=== PATIENT | male | born 1950 | race Caucasian/White ===

== ENCOUNTER → 2017-10-28 | Outpatient (CLI) | payer MEDICARE, BC ==
[~2017-10-28] MED LIST: ASPI325 PO; ASPI81EC; ERGO400; Glucophage1000 MG PO; HYDCHL25; LOSA50 PO; METO100ER; MONT10T PO; Multiple Vitam1 EAC1 PO; OMEP20ER; TELM80; TERA5; TOCO400
== END | disposition home or self-care (01) ==
LOC: LAB SHORT 10:53 → PLD 10:53
DX: C44.622 Squamous cell carcinoma of skin of right upper limb, including shoulder (principal); L82.1 Other seborrheic keratosis; L57.8 Other skin changes due to chronic exposure to nonionizing radiation
CPT/HCPCS: 88305

== ENCOUNTER → 2019-08-03 | Outpatient (CLI) | payer MEDICARE, BC | END | disposition home or self-care (01) | LOC: LAB SHORT 11:28 → PLD 11:28 | DX: L57.0 Actinic keratosis (principal) | CPT/HCPCS: 88305 ==

== ENCOUNTER 2023-06-10 11:03 | Day surgery (SDC) | payer MEDICARE ==
[~2023-06-10] VITALS: Ht 182.9 cm; Wt 119.4 kg
[~2023-06-10 11:03] MED LIST changes: +FURO40 PO; +METO25ER PO; +REPATHA SU140 MG/1 M; +SERT50 PO; +XARELTO20 MG PO
[2023-06-10] MEDS ORDERED: CeFAZolin Sodium 2,000 MG VIAL ONE (11:30)
[2023-06-10] MEDS ORDERED: NS 50 ML IV ONE (11:31)
[2023-06-10] MEDS ORDERED: SPIR25 PO (11:44)
[2023-06-10] MEDS ORDERED: ATOR40TA PO (11:45)
[2023-06-10] MEDS ORDERED: AMLO10 PO (11:46)
[2023-06-10] MEDS ORDERED: Lactated Ringer's 1,000 ML IV ONE (12:01)
[2023-06-10] MEDS ORDERED: Ropivacaine 0.5% HCl/Pf 5 MG/ML 20ML VIAL ONE (12:10)
[2023-06-10] MEDS ORDERED: Lidocaine HCl/Pf 1% 5 ML VIAL ONE (12:10)
[2023-06-10] MEDS ORDERED: FentaNYL Citrate 50 MCG/ML 2 ML Injection ONE (12:44)
[2023-06-10] MEDS ORDERED: propofoL 40 ML IV ONE (12:44)
[2023-06-10] MEDS ORDERED: Ibuprofen 600 MG Tab ONE (14:02)
[2023-06-10 14:08] VITALS: BP 133/59
== END 2023-06-10 14:27 | disposition home or self-care (01) ==
LOC: ORSCSDS 11:03
PROVIDERS: Podiatrist
PROC: 0SNQ0ZZ Release Left Toe Phalangeal Joint, Open Approach (ICD-10-PCS; principal; 2023-06-10 12:30)
PROC: 0L8W0ZZ Division of Left Foot Tendon, Open Approach (ICD-10-PCS; principal; 2023-06-10 12:30)
DX: M20.42 Other hammer toe(s) (acquired), left foot (principal); I12.9 Hypertensive chronic kidney disease with stage 1 through stage 4 chronic kidney disease, or unspecified chronic kidney disease; E11.22 Type 2 diabetes mellitus with diabetic chronic kidney disease; E11.65 Type 2 diabetes mellitus with hyperglycemia; N18.9 Chronic kidney disease, unspecified; E11.40 Type 2 diabetes mellitus with diabetic neuropathy, unspecified; I48.91 Unspecified atrial fibrillation; Z79.01 Long term (current) use of anticoagulants; E78.5 Hyperlipidemia, unspecified; G47.33 Obstructive sleep apnea (adult) (pediatric); Z87.891 Personal history of nicotine dependence; Z79.84 Long term (current) use of oral hypoglycemic drugs; Z79.899 Other long term (current) drug therapy; E66.9 Obesity, unspecified; Z68.35 Body mass index [BMI] 35.0-35.9, adult; Z85.46 Personal history of malignant neoplasm of prostate
CPT/HCPCS: 82947; A9270; J0690; J2001; J2704; J2795; J3010